=== PATIENT | female | born 1960 | race Caucasian/White ===

== ENCOUNTER 2017-09-27 14:00 | Outpatient (RCR) | payer OTHER, SELFPAY | END 2017-09-27 23:59 | LOC: PT.CARL 14:00 | PROVIDERS: Referring Provider Orthopaedic Surgery Adult Reconstructive Orthopaedic Surgery; Visit Provider Orthopaedic Surgery Adult Reconstructive Orthopaedic Surgery | DX: M25.562 Pain in left knee (principal) | CPT/HCPCS: 97014; 97110; 97161; G0283 ==

== ENCOUNTER 2017-11-08 09:30 | Outpatient (RCR) | payer OTHER, SELFPAY | END 2017-11-08 17:00 | disposition home or self-care (01) | LOC: PT 09:30 | PROVIDERS: Visit Provider Orthopaedic Surgery Adult Reconstructive Orthopaedic Surgery | DX: M25.562 Pain in left knee (principal) | CPT/HCPCS: 97010; 97014; 97033; 97035; 97110; G0283 ==

== ENCOUNTER → 2021-02-06 13:03 | Outpatient (CLI) | payer OTHER, SELFPAY ==
--- NOTE | 2021-02-06 13:05 | MM_ITS ---
PROCEDURE INFORMATION: Exam: MG Screening 3D Mammography Exam date and time: 02/06/2021 1:05 PM Age: 60 years old Clinical indication: screening mammogram . Family history of breast cancer TECHNIQUE: Imaging protocol: Screening tomosynthesis and 2D mammography including computer-aided detection (CAD) when performed. COMPARISON: MG MM MOBILE MAMMO DIGITAL SCREEN W CAD PAPO 08/27/2017 10:22 AM FINDINGS: MAMMOGRAPHY: Breast composition: There are scattered areas of fibroglandular density. Mass: Stable benign-appearing subcentimeter nodules are present in the bilateral breasts. No new or morphologically suspicious nodule has developed to suggest malignancy. Architectural distortion: No new or suspicious architectural distortion. Calcifications: No new or suspicious calcifications are present Asymmetric density: No new or suspicious asymmetric density is present Skin thickening: None. Axillary adenopathy: None. IMPRESSION: No mammographic evidence of malignancy. Recommend annual screening mammography unless otherwise clinically indicated. ASSESSMENT: BI-RADS category 2: Benign
== END ==
PROVIDERS: PCP Nurse Practitioner Family; Visit Provider Nurse Practitioner Family
DX: Z12.31 Encounter for screening mammogram for malignant neoplasm of breast (principal)
CPT/HCPCS: 77063; 77067

== ENCOUNTER → 2021-04-17 14:42 | Outpatient (CLI) | payer OTHER, SELFPAY | PROVIDERS: Visit Provider Internal Medicine Gastroenterology | DX: Z01.812 Encounter for preprocedural laboratory examination (principal); Z20.822 Contact with and (suspected) exposure to COVID-19; Z12.11 Encounter for screening for malignant neoplasm of colon | CPT/HCPCS: U0003 ==

== ENCOUNTER 2021-04-20 13:22 | Day surgery (SDC) | payer OTHER, SELFPAY ==
[2021-04-16 10:17] VITALS: BMI 31.6
[2021-04-20 13:34] VITALS: BP 135/68; PULSE 73; RESP 18; TEMP 37; O2SAT 96
--- NOTE | 2021-04-20 14:09 | HMH.ANESCL ---
[facility] Anesthesia Checklist - Patient Identification Patient Identification: Arm Band - Structural Data Admitted From: Home Planned Operative Procedure/s: colonoscopy Consent for Planned Operative Procedure(s) Verified: Yes Verified Documents: Surgical Consent, History and Physical - NPO Status Verified Time NPO: 00:00 - Additional verifications Anesthesia Reactions: No - Airway Assessment C-Spine Mobility Assessed: Yes (mp2) TMJ Mobility Assessed: Yes Dentition: Dentures-good fit - Neurological Assessment Level of Consciousness: Awake, Alert - Anesthesia Plan Anesthesia Risk discussed: Yes Anesthesia Plan: Verified ASA Class: II Anesthesia Type: MAC [facility] History I have reviewed the patient's past medical history: Yes Medical History: Reports:: Hyperlipidemia Denies:: Cancer, Diabetes Mellitus Type 1, Diabetes Mellitus Type 2, Internal Pacemaker, MRSA, Seizures *Have you ever received a pneumonia vaccine?: No *Have you received a flu vaccine this season?: No Anesthesia experience/problems:: nac Laterality Cases: Left: Arthroscopy Knee, Bilateral: Cataract Other Surgeries: No: Pacemaker Amputation: No Fractures: No - *Social History Last grade of school completed: GED Smoking Status: Current every day smoker Tobacco Type: cigarettes # Packs/Day (cigarettes): 1 Alcohol Intake: never Substance Use Type: denies use *Occupational Status:: employed, retired Housing: house Household Members: none *Travel in the last 8 weeks: None Family Hx:: No significant family history
--- NOTE | 2021-04-20 14:25 | P.PCN_ITS ---
[facility] Procedure Note Procedure Note:: Colonoscopy Procedure Report: Colonoscopy with cold snare polypectomy and Endo Clip placement Endoscopist: Tiago Toribio II, MD Referring physician: JUAN Hawkins Date of Procedure: April 20, 2021 Equipment: Olympus 190 variable stiffness pediatric colonoscope Sedation: MAC sedation Indication: Mrs. Ritter is a 60-year-old female who is here for diagnostic colonoscopy secondary to a positive Cologuard test. The patient reports no abdominal pain, weight loss, change in her bowel habits or rectal bleeding. She reports no hematochezia or melena. She reports no family history of colon cancer. She may have a bowel movement every couple of days. This is her first colonoscopy. Procedure: Prior to the procedure, a history and physical exam was performed, and patient's medications and allergies were reviewed. The risks, benefits and alternatives of the sedation and procedure were discussed with the patient. All questions were answered and informed consent was obtained. The patient was brought to the procedure room. Patient identification and proposed procedure were verified by the physician and the nurse. The patient was placed in a left lateral decubitus position and the scope was passed under direct vision. Throughout the procedure, the patient's blood pressure, pulse, and oxygen saturations were monitored continuously. The colonoscopy was accomplished without difficulty. The patient tolerated the procedure well. Findings: On digital rectal examination there was normal rectal tone. There were no external hemorrhoids. The colonoscope was introduced through the anal canal to the rectum and advanced to the cecum. The ileocecal valve and appendiceal orifice were identified. The scope was advanced a short distance into the ileum which appeared grossly normal. The scope was then withdrawn into the colon. There were a total of 6 colon polyps (cecum x1 (6 mm), transverse x2 (3 and 5 mm), descending x1 (4 mm), sigmoid x1 (6 mm) and rectum x1 (4 mm)) which were all removed via cold snare polypectomy. There was some heme after removal of the rectal polyp and an Endo Clip was placed over the polypectomy site with complete hemostasis. There were scattered diverticuli throughout the distal descending and sigmoid colon. Upon retroflexion within the rectum there were 1- 2 internal hemorrhoids.The preparation was good throughout with [place] Preparation Score of 8 out of 9. The cecal time was 14 minutes. Impression: 1. Colonic polyps x6 2. Left-sided diverticulosis 3. Grade 1-2 internal hemorrhoids Plan: I will follow up the polyp pathology and recommend repeat colonoscopy again in 3-5 years based upon the polyp histology. I would encourage a fiber bowel regimen on a long-term daily maintenance basis.
[2021-04-20 14:28] VITALS: BP 109/52; PULSE 65; RESP 16; TEMP 36.3; O2SAT 95
[2021-04-20 14:38] VITALS: BP 120/66; PULSE 65; RESP 18; TEMP 36.3; O2SAT 97
[2021-04-20 14:41] VITALS: O2SAT 94
[2021-04-20 14:48] VITALS: BP 128/65; PULSE 65; RESP 18; TEMP 36.3; O2SAT 98
[2021-04-20 14:58] VITALS: BP 128/65; PULSE 65; RESP 18; TEMP 36.3; O2SAT 98
== END 2021-04-20 14:59 | disposition home or self-care (01) ==
LOC: OUTP 13:23
PROVIDERS: PCP Nurse Practitioner Family; Visit Provider Internal Medicine Gastroenterology
PROC: 0DJD8ZZ Inspection of Lower Intestinal Tract, Via Natural or Artificial Opening Endoscopic (ICD-10-PCS; CPT 45378; principal; 2021-04-20 14:00)
DX: K63.5 Polyp of colon (principal); K57.30 Diverticulosis of large intestine without perforation or abscess without bleeding; K64.0 First degree hemorrhoids; E78.5 Hyperlipidemia, unspecified; Z72.0 Tobacco use; Z79.899 Other long term (current) drug therapy
CPT/HCPCS: 45385

== ENCOUNTER → 2022-07-01 10:03 | Outpatient (CLI) | payer OTHER, SELFPAY ==
--- NOTE | 2022-07-01 10:09 | MM_ITS ---
PROCEDURE INFORMATION: Exam: MG Bilateral Screening 3D Mammography Exam date and time: 07/01/2022 10:20 AM Age: 62 years old Clinical indication: Screening examination TECHNIQUE: Imaging protocol: Bilateral Screening tomosynthesis and 2D mammography including computer-aided detection (CAD) when performed. COMPARISON: 1. MG MM DIG SCREENING MAMM BI W/CAD 02/06/2021 1:21 PM 2. MG MM MOBILE MAMMO DIGITAL SCREEN W CAD PAPO 08/27/2017 10:22 AM FINDINGS: MAMMOGRAPHY: Breast composition: The breasts are almost entirely fatty. Mass: None. Architectural distortion: None. Calcifications: No suspicious calcifications. Asymmetric density: None. Skin thickening: None. Axillary adenopathy: None. IMPRESSION: No mammographic evidence of malignancy. Annual screening is recommended unless otherwise clinically indicated. ASSESSMENT: BI-RADS Category 1: Negative
== END ==
PROVIDERS: PCP Nurse Practitioner Family; Visit Provider Nurse Practitioner Family
DX: Z12.31 Encounter for screening mammogram for malignant neoplasm of breast (principal)
CPT/HCPCS: 77063; 77067

== ENCOUNTER 2024-03-27 15:17 | Outpatient (CLI) | payer MEDICARE, SELFPAY ==
--- NOTE | 2024-03-27 15:23 | CT_ITS ---
FINAL REPORT CLINICAL HISTORY: SCREENING current smoker 1 ppd x 45 yrs FINDINGS: Axial images were obtained from the lung apex to the mid abdomen by computed tomography. Low-dose protocol was utilized. CTDl vol(mGy): 2.90 DLP (mGy-cm): 108.90 FINDINGS: There is no axillary adenopathy. There is no hilar or mediastinal adenopathy. Mild coronary artery calcifications are noted. The heart size is normal. There is no pericardial or pleural effusion. Limited images of the upper abdomen are unremarkable. Lung window images demonstrate a 4 mm posterior right upper lobe nodule seen on image 20. There is a calcified granuloma in the right lower lobe. A 2 mm nodule was seen in the right lower lobe on image 51. IMPRESSION: Lung RADS category 2. Recommend 12 month follow-up low-dose chest CT. Reviewed, Interpreted and Dictated by Dank Castillo III, MD Transcribed by Christel Martinez Authenticated and [facility]
--- NOTE | 2024-03-27 15:26 | MM_ITS ---
PROCEDURE INFORMATION: Exam: MG Bilateral Screening 3D Mammography Exam date and time: 03/27/2024 3:15 PM Age: 63 years old Clinical indication: Screening examination TECHNIQUE: Imaging protocol: Bilateral Screening tomosynthesis and 2D mammography including computer-aided detection (CAD) when performed. COMPARISON: 1. MG MM DIG SCREENING MAMM BI W/CAD 07/01/2022 10:20 AM 2. MG MM DIG SCREENING MAMM BI W/CAD 02/06/2021 1:21 PM FINDINGS: MAMMOGRAPHY: Breast composition: The breasts are almost entirely fatty. Mass: None. Architectural distortion: None. Calcifications: No suspicious calcifications. Asymmetric density: None. Skin thickening: None. Axillary adenopathy: None. IMPRESSION: No mammographic evidence of malignancy. Annual screening is recommended unless otherwise clinically indicated. ASSESSMENT: BI-RADS Category 1: Negative
== END 2024-03-27 23:59 | disposition home or self-care (01) ==
LOC: RAD 15:19
PROVIDERS: PCP Nurse Practitioner Family; Visit Provider Nurse Practitioner Family
DX: Z12.31 Encounter for screening mammogram for malignant neoplasm of breast; F17.210 Nicotine dependence, cigarettes, uncomplicated; Z12.2 Encounter for screening for malignant neoplasm of respiratory organs
CPT/HCPCS: 71271; 77063; 77067

== ENCOUNTER 2024-11-28 10:02 | Day surgery (SDC) | payer MEDICARE, SELFPAY ==
[2024-11-27 10:19] VITALS: BMI 30.7
[2024-11-28 10:19] VITALS: BP 158/85; PULSE 61; RESP 18; TEMP 36.4; O2SAT 99
[2024-11-28] MEDS: LACTATED RINGERS 1000ML 1,000 ML 50 ML IV (10:35)
[2024-11-28 10:39] LABS: POC Glucose,Bedside 104 (70-110)
--- NOTE | 2024-11-28 10:44 | P.HP_ITS ---
History of Present Illness *Admission Date: 11/28/24 *Reason for visit:: Personal history of adenomatous colon polyps-surveillance *History of present illness: Mrs. Ritter is a 64-year-old female who is here for follow-up surveillance colonoscopy secondary to a personal history of adenomatous colon polyps. The patient did have a colonoscopy in March 2021 and had 6 polyps. The examination is deemed medically necessary for surveillance colonoscopy. The patient has been seen, interviewed and examined prior to the procedure by both myself and the anesthesia provider. [facility] Disclaimer: The information contained in this section may have been updated after the patient was seen, as this information can be updated by other users. Medical History (Updated 11/28/24 @ 10:45 by Tiago Toribio II, MD) Diabetes Hyperlipemia Hypertension History of high cholesterol Annual physical exam Surgical History (Updated 11/28/24 @ 10:32 by Carmen Mccabe RN) History of left knee surgery Tubal ligation status Family History Other Heart attack Stroke Social History Smoking Status: Current every day smoker tobacco type: cigarettes packs per day: 1 second hand exposure: Yes alcohol intake: never substance use type: denies use current occupational status: employed and retired Travel in the last 8 weeks: None household members: none housing: house 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 current occupational exposures/hazards: No caffeine: Yes Have you lived/traveled outside US in past 30 days?: No Contact w/someone who lives/traveled outside US past 30 days?: No Exposure to someone with infectious disease in past 14 days?: No Do you have a fever (greater than 100.4 F or 38 C)?: No Have you tested positive for COVID-19: No Exposed to someone with COVID-19 in past 14 days?: No Do you have a sore throat?: No Do you have a cough?: No Do you have any weakness?: No Are you experiencing any nausea/vomitting?: No Do you have any diarrhea?: No Are you experiencing any unusual bleeding?: No Do you have any muscle aches/pain?: No Do you have any abdominal pain?: No Are you experiencing loss of taste or smell?: No Other Medical History Have you received the Flu Vaccine for this season: No Have you received the Pneumonia Vaccine: No Review of Systems Review of Systems Review of systems (narrative): Negative *Cardiovascular Comments: Negative *Gastrointestinal Comments: Negative *Genitourinary Comments: Negative *Musculoskeletal Comments: Negative *Neurologic Comments: Negative Meds Home Medications and Allergies Home Medications ?Medication ?Instructions ?Recorded ?Confirmed ?Type rosuvastatin 20 mg tablet 20 mg PO DAILY Cholesterol 04/20/21 07/01/22 History peg 3350-electrolytes 236 240 ml PO Q10M colonscopy #4,000 mL 11/21/24 Rx gram-22.74 gram-6.74 gram-5.86 gram solution (Golytely) lisinopril 10 mg tablet 10 mg PO DAILY 11/27/24 11/28/24 History metformin 500 mg tablet 500 mg PO DAILY 11/27/24 11/28/24 History rosuvastatin 20 mg tablet 20 mg PO DAILY 11/27/24 11/28/24 History New Prescriptions to Start Prescriptions: Allergies Allergy/AdvReac Type Severity Reaction Status Date / Time No Known Allergies Allergy Verified 11/28/24 10:23 Exam Data for Last 24 hours Vital signs and Labs for Last 24 Hours: Temp Pulse Resp BP Pulse Ox O2 Del Method 97.6 F 61 18 158/85 H 99 Room Air 11/28/24 10:19 11/28/24 10:19 11/28/24 10:19 11/28/24 10:19 11/28/24 10:19 11/28/24 10:19 Laboratory Results - last 24 hr 11/28/24 10:30: POC Glucose 104 I & O for Last 24 hours: Intake & Output 11/25/24 11/26/24 11/27/24 11/28/24 23:59 23:59 23:59 23:59 Weight 185 lb *Routine HEENT Exam Head: Present normocephalic Eye: Present EOMI and PERRL ENT: Present mucous membranes moist *Routine Neck Exam Neck: Present supple *Routine Respiratory Exam Respiratory: Present CTA bilaterally *Routine Cardiovascular Exam Cardiovascular: Present RRR *Routine Abdominal Exam Abdominal: Present soft and normoactive bowel sounds; Absent tenderness *Routine Rectal Exam Rectal:: deferred *Routine Genitalia Exam Genitalia:: deferred *Routine Extremities Exam Extremities: Absent cyanosis, clubbing or edema *Routine Skin Exam Skin: Present warm; Absent rash *Routine Neurological Exam Neurological: Present alert and oriented X3 Assessment and Plan *Assessment and plan (1) Personal history of adenomatous and serrated colon polyps: Status: Acute Category: Medical Code(s): Z86.0101 - Personal history of adenomatous and serrated colon polyps Plan A/P: 1. Personal history of adenomatous colon polyps is the preprocedural diagnosis. The patient will be anesthetized/sedated using MAC sedation. The patient has been seen and examined. Cardiac and lung assessment prior to the examination is stable. Proceed with planned surveillance colonoscopy
--- NOTE | 2024-11-28 10:45 | P.PCN_ITS ---
[facility] Procedure Note Date: 11/28/24 Time: 11:15 Procedure Note:: Colonoscopy Procedure Report: Colonoscopy with cold snare polypectomy Endoscopist: Tiago Toribio II, MD Referring physician: JUAN Hawkins Date of Procedure: November 28, 2024 Equipment: Olympus 190 variable stiffness pediatric colonoscope Sedation: MAC sedation Indication: Mrs. Ritter is a 64-year-old female who is here for follow-up surveillance colonoscopy. She did have a positive Cologuard in 2020 and her colonoscopy in March 2021 revealed 6 polyps (sessile serrated adenoma x 1/tubular adenomas x 3/hyperplastic polyps x 2) which were removed. The patient reports no abdominal pain, weight loss, change in her bowel habits or rectal bleeding. She reports no family history of colon cancer. Procedure: Prior to the procedure, a history and physical exam was performed, and patient's medications and allergies were reviewed. The risks, benefits and alternatives of the sedation and procedure were discussed with the patient. All questions were answered and informed consent was obtained. The patient was brought to the procedure room. Patient identification and proposed procedure were verified by the physician and the nurse. The patient was placed in a left lateral decubitus position and the scope was passed under direct vision. Throughout the procedure, the patient's blood pressure, pulse, and oxygen saturations were monitored continuously. The colonoscopy was accomplished without difficulty. T he patient tolerated the procedure well. Findings: On digital rectal examination there was normal rectal tone. There were no external hemorrhoids. The colonoscope was introduced through the anal canal to the rectum and advanced to the cecum. The ileocecal valve and appendiceal orifice were identified. The scope was advanced a short distance into the ileum which appeared grossly normal. The scope was then withdrawn into the colon. The cecum, ascending and transverse colon and mucosa were grossly normal. There were scattered diverticuli throughout the descending and sigmoid colon (LEFT colon). There were 7 colon polyps (descending x 3 (3, 3 and 4 mm) and rectosigmoid x 4 (4, 5, 5 and 8 mm)). These were all removed via cold snare polypectomy. The rectum itself was normal. Upon retroflexion within the rectum there were grade 1-2 internal hemorrhoids. The preparation was excellent throughout with [place] Preparation Score of 9. The cecal time was 12 minutes. Impression: 1. Diminutive colonic polyps x 7 2. Left-sided diverticulosis 3. Grade 1-2 internal hemorrhoids Plan: I will follow-up the polyp histology and recommend repeat surveillance colonoscopy again in 3 to 5 years based upon the pathology. I would encourage psyllium fiber supplementation on a long-term daily maintenance basis.
[2024-11-28 11:19] VITALS: BP 120/72; PULSE 69; RESP 16; TEMP 36.3; O2SAT 92
[2024-11-28 11:29] VITALS: BP 108/68; PULSE 70; RESP 16; O2SAT 92
[2024-11-28 11:39] VITALS: BP 117/64; PULSE 71; RESP 18; O2SAT 94
[2024-11-28 11:49] VITALS: BP 103/56; PULSE 67; RESP 18; O2SAT 91
--- NOTE | 2024-11-28 16:11 | EXP.ANES.CKL ---
[facility] Disclaimer: The information contained in this section may have been updated after the patient was seen, as this information can be updated by other users. Medical History (Updated 11/28/24 @ 10:45 by Tiago Toribio II, MD) Diabetes Hyperlipemia Hypertension History of high cholesterol Annual physical exam Surgical History (Updated 11/28/24 @ 10:32 by Carmen Mccabe, DENA) History of left knee surgery Tubal ligation status Family History Other Heart attack Stroke Social History Smoking Status: Current every day smoker tobacco type: cigarettes packs per day: 1 second hand exposure: Yes alcohol intake: never substance use type: denies use current occupational status: employed and retired Travel in the last 8 weeks: None household members: none housing: house 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 current occupational exposures/hazards: No caffeine: Yes Have you lived/traveled outside US in past 30 days?: No Contact w/someone who lives/traveled outside US past 30 days?: No Exposure to someone with infectious disease in past 14 days?: No Do you have a fever (greater than 100.4 F or 38 C)?: No Have you tested positive for COVID-19: No Exposed to someone with COVID-19 in past 14 days?: No Do you have a sore throat?: No Do you have a cough?: No Do you have any weakness?: No Are you experiencing any nausea/vomitting?: No Do you have any diarrhea?: No Are you experiencing any unusual bleeding?: No Do you have any muscle aches/pain?: No Do you have any abdominal pain?: No Are you experiencing loss of taste or smell?: No [facility] Anesthesia Checklist Patient Identification Patient Identification: Arm Band Structural Data Admitted From: Home Planned Operative Procedure/s: Colonoscopy Consent for Planned Operative Procedure(s) Verified: Yes Verified Documents: Surgical Consent and History and Physical NPO Status Verified Time NPO: 00:00 Additional verifications Anesthesia Reactions: No Airway Assessment Mallampati Score:: Class II C-Spine Mobility Assessed: Yes TMJ Mobility Assessed: Yes Neurological Assessment Level of Consciousness: Awake, Alert and Appropriate Anesthesia Plan Anesthesia Risk discussed: Yes Anesthesia Plan: Verified ASA Class: II Anesthesia Type: MAC
== END 2024-11-28 11:54 | disposition home or self-care (01) ==
PROVIDERS: PCP Nurse Practitioner Family; Visit Provider Internal Medicine Gastroenterology
PROC: 0DJD8ZZ Inspection of Lower Intestinal Tract, Via Natural or Artificial Opening Endoscopic (ICD-10-PCS; CPT 45378; principal; 2024-11-28 11:30)
DX: K63.5 Polyp of colon (principal); K57.30 Diverticulosis of large intestine without perforation or abscess without bleeding; K64.8 Other hemorrhoids; Z86.0101 Personal history of adenomatous and serrated colon polyps; R19.5 Other fecal abnormalities; E11.9 Type 2 diabetes mellitus without complications; Z79.84 Long term (current) use of oral hypoglycemic drugs
CPT/HCPCS: 45385; 82962; J7120

== ENCOUNTER 2025-03-28 08:46 | Outpatient (CLI) | payer MEDICARE, SELFPAY ==
--- NOTE | 2025-03-28 08:49 | XR_ITS ---
FINAL REPORT CLINICAL HISTORY: SCREENING COMPARISON: None FINDINGS: Using L1-4, the bone mineral density of the spine is 1.086 g/cm2, corresponding to T-score of 0.4, within normal limits. Using the left hip, the bone mineral density of the total hip is 0.805 g/cm2, corresponding to a T-score of -1.1, consistent with osteopenia. Using the right hip, the bone mineral density of the femoral neck is 0.768 g/cm2, corresponding to a T-score of -0.7, within normal limits. FRAX 10 year fracture risk is 0.9% for a hip fracture and 7.7% for a major osteoporotic fracture. NOTE: T-score: Standard deviation compared with peak bone mass of young adult mean. *Following the recommendations of the International Society of Bone densitometry, classification of hip BMD is based on the lower of two T-scores; total hip or femoral neck. IMPRESSION: Normal bone mineral density of the lumbar spine and right hip, with diminished bone mineral density in the left hip consistent with osteopenia. Reviewed, Interpreted and Dictated by Zacarias Renee MD Transcribed by Monica Doan Authenticated and [facility]
--- NOTE | 2025-03-28 08:49 | CT_ITS ---
FINAL REPORT TECHNIQUE: Thin section axial images were obtained from the lung apices to the upper abdomen by computed tomography. Reformatted images were obtained and reviewed. This study was performed with techniques to keep radiation doses al low as reasonably achievable (ALARA). Individualized dose reduction techniques using automated exposure control or adjustment of mA and/or kV according to the patient's size were employed. CLINICAL HISTORY: SCREENING current smoker 1.5 packs per day for 40 years COMPARISON: 03/27/2024 FINDINGS: CHEST CT LOW DOSE 64-year-old female, current smoker, 56-[id number]-kqth history. CTDI vol (mGy): 2.90 DLP (mGy-cm): 96.38 There is no axillary adenopathy. There is no mediastinal or hilar mass or adenopathy. The heart is normal in size. There are mild coronary artery calcifications present. There is no pericardial or pleural effusion. Lung window images demonstrate a 4 mm posterior right upper lobe nodule, best seen on image #2 of series 4, stable. There is also a 2 mm right lower lobe nodule, best seen on image #53 of series 4, also stable. Limited images of the upper abdomen are unremarkable. IMPRESSION: Lung-RADS category 2. Recommend 12 month follow up low dose chest CT. Reviewed, Interpreted and Dictated by Zacarias Renee MD Transcribed by Guera Lenz Authenticated and . [facility]
--- NOTE | 2025-03-28 08:56 | MM_ITS ---
PROCEDURE INFORMATION: Exam: MG Bilateral Screening 3D Mammography Exam date and time: 03/28/2025 9:48 AM Age: 64 years old Clinical indication: Screening examination TECHNIQUE: Imaging protocol: Bilateral Screening tomosynthesis and 2D mammography including computer-aided detection (CAD) when performed. COMPARISON: 1. MG MM DIG SCREENING MAMM BI W/CAD 03/27/2024 3:15 PM 2. MG MM DIG SCREENING MAMM BI W/CAD 07/01/2022 10:20 AM FINDINGS: MAMMOGRAPHY: Breast composition: There are scattered areas of fibroglandular density. Mass: No suspicious masses. Architectural distortion: None. Calcifications: No suspicious calcifications. Asymmetric density: None. Skin thickening: None. Axillary adenopathy: None. IMPRESSION: No mammographic evidence of malignancy. Annual screening is recommended unless otherwise clinically indicated. ASSESSMENT: BI-RADS Category 1: Negative.
--- OUTSIDE RECORDS SUMMARY | 2025-03-28 09:05 | XMS_ITS | Continuity of Care Document ---
Author Organization [place] - [facility] Address [address] [place] [id number] Assessment Encounter Date Assessment Date Assessment LastModified by Organization Details LastModified Time 02/13/2025 02/13/2025 Declines vaccinations today. Not available 02/13/2025 11:53:28 Plan of Treatment Reminders Order Date Submit Date Provider Last Modified By Organization Details Last Modified Time Details Appointments None recorded. Lab HbA1c (hemoglobin A1c), blood 2024 025 [email or web address] [facility], [facility] [place], [address], 5 11:47:19 CMP, serum or plasma 2024 025 BETSY [facility]), [facility] [place], [address], 5 19:07:42 lipid panel, serum 2024 025 BETSY [facility] ([place] [address] [place], [address], 5 19:07:42 albumin/cre atinine, mass ratio, urine 2024 025 COOLSPRING [facility] ([place]), [address] [place], [address], 5 19:07:42 CBC w/ auto diff 2024 COOLS[facility] [facility] ([place]), [address], [place], [address], 19:07:41 Referral None recorded. Procedures None recorded. Surgeries None recorded. Imaging MAMMO, screening, digital, bilateral - due after 03/27/252024 [address] (Scheduling), [address], [place], [address], 09:42:28 LDCT, chest, for lung cancer screening - Secondary dx: F17.210; due after 03/27/25[address] (Scheduling), [address], [place], [address], 09:41:59 DEXA - same day as mammo please [address] (Scheduling), [address], [place], [address], 5 09:42:55 Medication Orders rosuvastati n 20 mg tablet 2024 [facility], [address] [place] [address], [address], 12:38:34 Jardiance 10 mg tablet 2024 [facility], [address] [place] [address], [address], 11:11:08 lisinopril 10 mg tablet 2024 [facility], [address] [place] [address], [address], 12:38:35 Patient TargetsNo targets recorded. Patient Instructions Encounter Date Encounter Id Patient Instructions Last Modified By Organization Details Last Modified Time 02/13/2025 [id number] Quitting Tobacco : Care Instructions Not available 02/13/2025 11:47:17 Reason for Referral None Reported. Results Created Date Observation Date Name Description Value Unit Range Abnormal Flag Note LastModifiedBy Organization Detail LastModifiedTime 02/14/2002/13/2025 HbA1c (hemo globi n A1c), blood HbA1c 6.6 Not Available [address], [address], 02/11/2025 17:14:30 Result Notes None recorded. Problems Name Problem SNOMED Code Status Onset Date Resolution Date Notes Provider Name and Address Organization Details Recorded Time Type 2 diabetes mellitus without complica tion 262740036 Active 2023 Alea Butler APRN [address] [place], [address] , [email or web address] 4 13:37:34 [facility] hyperten christiano 37490750 Active 2023 Alea Butler, GAYE [address] [place], [address] , [employer] 4 13:37:41 Type 2 diabetes mellitus 93952975 Active 2024 Alea Butler APRN [address] [place], [address] , [email or web address] 5 11:36:29 Body mass index 25-29 - overweig ht 152578262 Active 2024 Alea Butler, GAYE [address] [place], [address] , [email or web address] 5 13:09:21 Mixed hyperlip idemia 505153945 Active 2020 Problem Code: E78.2; Problem Code Type: ICD-10; Not Available [employer] 2 21:28:18 Tobacco dependen ce caused by cigarett es 90991169965 649275 Active 2020 Problem Code: F17.210; Problem Code Type: ICD-10; Not Available [facility] 2 21:28:18 Acute laryngop haryngit is 03424995 Completed 201707/09/2018 Problem Code: J06.0; Problem Code Type: ICD-10; Not Available [facility] 2 21:28:19 Nicotine dependen ce 69498573 Completed 201707/09/2018 Problem Code: F17.200; Problem Code Type: ICD-10; Not Available [facility] 2 21:28:19 Acute bronchit is 28457648 Completed 202008/31/2022 Problem Code: J20.9; Problem Code Type: ICD-10; MARCELLE kent, [employer] 2 08:10:00 Pain in left knee Completed 201606/28/2017 Problem Code: M25.562; Problem Code Type: ICD-10; Not Available [facility] 2 21:28:19 Pain in left knee Completed 201708/15/2018 Problem Code: M25.562; Problem Code Type: ICD-10; Not Available [facility] 2 21:28:19 Pain in left knee Completed 201611/09/2016 Problem Code: M25.562; Problem Code Type: ICD-10; Not Available [facility] 2 21:28:19 Rupture of synovium of hip 142798636 Completed 201609/23/2017 Problem Code: M66.152; Problem Code Type: ICD-10; Not Available [facility] 2 21:28:19 Subacrom ial bursitis 60455485 Completed 202008/31/2022 MARCELLE kent, [employer] 2 08:10:00 Elevated blood-pr essure reading without diagnosi s of hyperten christiano 127788162 Completed 202008/31/2022 MARCELLE kent, [employer] 2 08:10:00 Stool color abnormal 584421777 Completed 202008/31/2022 Problem Code: R19.5; Problem Code Type: ICD-10; MARCELLE ROBERTSONR null, [employer] 2 08:10:00 Finding of general energy 843915809 Completed 202002/16/2021 Problem Code: R53.83; Problem Code Type: ICD-10; Not Available [facility] 2 21:28:20 Tear of meniscus of knee 375879797 Completed 201609/23/2017 Problem Code: S83.201A ; Problem Code Type: ICD-10; Not Available [facility] 2 21:28:20 Abnormal finding on evaluati on procedur e 222380969 Completed 202008/31/2022 MARCELLE MOORENEAR null, [employer] 2 08:10:00 Screenin g mammogra phy Completed 202008/31/2022 Problem Code: Z12.31; Problem Code Type: ICD-10; MARCELLE MOORENEAR null, [employer] 2 08:10:00 Choleste rol screenin g Completed 202008/31/2022 MARCELLE MYNEAR null, [employer] 2 08:10:00 Screenin g for malignan t neoplasm of respirat ory tract Completed 202108/31/2022 Problem Code: Z12.2; Problem Code Type: ICD-10; MARCELLE MYNEAR null, [employer] 2 08:10:00 Screenin g for malignan t neoplasm of respirat ory tract Completed 201707/09/2018 Problem Code: Z12.2; Problem Code Type: ICD-10; MARCELLE TERESANEAR null, [employer] 2 08:10:00 Body mass index 30+ - obesity 827230593 Completed 201701/26/2021 Problem Code: Z68.31; Problem Code Type: ICD-10; Alea Butler, [employer]ICAL [employer] PROCESSOR [address] [facility], [place], [address] , [employer] 5 13:09:10 Pain in right knee Completed 201708/15/2018 Problem Code: M25.561; Problem Code Type: ICD-10; Not Available [facility] 2 21:28:21 Low back pain 942986308 Completed 202008/31/2022 Problem Code: M54.5; Problem Code Type: ICD-10; MARCELLE TERESAMOHAMUD kent, [employer] 08:10:00 Knee pain Completed 201708/15/2018 Problem Code: 719.46; Problem Code Type: ICD-9; Not Available [facility] 2 21:28:22 Knee pain Completed 201611/09/2016 Problem Code: 719.46; Problem Code Type: ICD-9; Not Available [facility] 2 21:28:22 Screenin g for malignan t neoplasm of colon Completed 202008/31/2022 MARCELLE TERESAMOHAMUD kent, [employer] 2 08:10:00 Tobacco dependen ce syndrome 77769428 Completed 201707/09/2018 Problem Code: 305.1; Problem Code Type: ICD-9; Not Available [facility] 2 21:28:23 Knee pain Completed 201606/28/2017 Problem Code: 719.46; Problem Code Type: ICD-9; Not Available [facility] 2 21:28:23 Synovial cyst of poplitea l space Completed 201609/23/2017 Problem Code: 727.51; Problem Code Type: ICD-9; Not Available [facility] 2 21:28:23 Current knee cartilag e tear Completed 201609/23/2017 Problem Code: 836.2; Problem Code Type: ICD-9; Not Available [facility] 2 21:28:23 Problem Notes None recorded. Procedures Surgical History Date Name Laterality Status Provider Name and Address Organization Details Recorded Time Most Recent Mammogram completed [facility] 08/22/2024 10:36:43 ligation of fallopian tube completed [facility] 08/31/2022 08:14:40 Knee Surgery completed [facility] 08/31/2022 08:14:56 bilateral extraction of cataracts completed [employer] 08/31/2022 08:15:20 Imaging Results None recorded. Procedure Notes None recorded. Medical Equipment None Reported. Allergies No known drug allergies Medications Name Sig Start Date Stop Date Status Note LastModified by Organization Details LastModified Time methocarbam ol 500 mg tablet take 1 tab by oral route every 8 hours prn back pain 11/24 completed Not Available Not Available Not Available doxycycline hyclate 100 mg capsule 02/13 completed Not Available Not Available Not Available azithromyci n 250 mg tablet take 2 tablets (500 mg) by oral route once daily for 1 day then 1 tablet (250 mg) by oral route once daily for 4 days 05/12 completed Not Available Not Available Not Available benzonatate 200 mg capsule take 1 capsule (200 mg) by oral route 3 times per day 05/12 completed Not Available Not Available Not Available Medrol (Ladarius) 4 mg tablets in a dose pack take by oral route as directed per package instructi ons 05/26 completed Not Available Not Available Not Available aspirin 81 mg tablet,shelia yed release Take 1 tablet every day by oral route. active Not Available Not Available No t Available meloxicam 7.5 mg tablet Take 1 tablet(s) by mouth BID 12/25 completed Not Available Not Available Not Available prednisolon e acetate 1 % eye drops,suspe nsion 11/29 completed Not Available Not Available Not Available lisinopril 10 mg tablet TAKE ONE TABLET BY MOUTH EVERY DAY active Not Available Not Available No t Available nicotine 21 mg/24 hr daily transdermal patch apply 1 patch topically once daily, remove old patch before applying new active Not Available Not Available No t Available diclofenac sodium 75 mg tablet,shelia yed release Take 1 tablet(s) by mouth bid 01/26 completed Not Available Not Available Not Available metformin ER 500 mg tablet,exte nded release 24 hr TAKE ONE TABLET BY MOUTH EVERY DAY WITH meal active Not Available Not Available No t Available lisinopril 2.5 mg tablet Take 1 tablet every day by oral route. 03/01 completed Not Available Not Available Not Available cyclobenzap rine 5 mg tablet take 1 tablet (5 mg) by oral route q HS prn shoulder pain 05/12 completed Not Available Not Available Not Available rosuvastati n 20 mg tablet TAKE ONE TABLET BY MOUTH EVERY DAY active Not Available Not Available No t Available ProAir HFA 90 mcg/actuati on aerosol inhaler inhale 1 - 2 puffs (90 - 180 mcg) by inhalatio n route every 4 hours as needed 2020 active Not Available Not Available Not Avai lable GaviLyte-G 236 gram-22.74 gram-6.74 gram-5.86 gram oral solution After mixing prep as directed, drink half of the gallon by drinking 8 ounces, or 1 cup, every 15 minutes until half is remaining . refrigera te the remaining and continue clear liquids till midnight. 5-6 hours before exam, take the second dosage, 8oz every 15 minutes till gone. 02/13 completed Not Available Not Available Not Available Jardiance 10 mg tablet TAKE ONE TABLET BY MOUTH EVERY MORNING FOR FOR DIABETES 03/05 completed Not Available Not Available Not Available Vitals Date Recorded Body height Body mass index (BMI) Body weight Body temperature Heart rate Oxygen saturation Oxygen saturation in Arterial blood by Pulse oximetry Systolic And Diastolic Provider Name and Address Organization Details Last Updated DateTime 5 165.1 cm 28.7 kg/m2 23644.3 2 g 97.4 [degF] 74 /min 95 % 95 % 115/50 mm[Hg] MARCELLE JO [facility] [employer] 5 11:29:21 Social History Question Answer Notes LastModified by Organizat ion Details LastModified Time Tobacco Smoking Status Current Every Day Smoker Patrica kent, [facility] [employer] 11/25/2022 10:25:05 Do You Have An Advance Directive? No Information n ot available 08/31/2022 Is Your Home Air Conditioned? Yes Information not available 08/31/2022 Are You Blind Or Do You Have Difficulty Seeing? No Information n ot available 08/31/2022 In The 14 Days Before Symptom Onset, Have You Had Close Contact With A Laboratory-confirm ed COVID-19 While That Case Was Ill? No Information n ot available 08/31/2022 In The 14 Days Before Symptom Onset, Have You Had Close Contact With A Person Who Is Under Investigation For COVID-19 While That Person Was Ill? No Information not available 08/31/2022 Have You Been To An Area Known To Be High Risk For COVID-19? No Information not available 08/31/2022 Are You Deaf Or Do You Have Serious Difficulty Hearing? No Information not available 08/31/2022 What Type Of Diet Are You Following? 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 No Information no t available 08/31/2022 Are There Any Guns Present In Your Home? No Information not available 08/31/2022 Do You Have A Medical Power Of Car Shifter? No Information not available 08/31/2022 What Was The Date Of Your Most Recent Tobacco Screening? 02/13/2025 Information not available 02/13/2025 What Is Your Current Pack Years? 30ormorepacky ears Information not available 08/31/2022 What Is Your Relationship Status? Information not available 08/31/2022 Do You Use Your Seat Belt Or Car Seat Routinely? Yes Information not available 08/31/2022 Do You Have Smoke And Carbon Monoxide Detectors In Your Home? Yes Information not available 08/31/2022 At What Age Did You Start Smoking Tobacco? 17 Information not available 08/31/2022 Are You Passively Exposed To Smoke? No Information no t available 08/31/2022 Are There Any Smokers In Your House? No Information not available 08/31/2022 How Much Tobacco Do You Smoke? 1 PPW Information not available 08/31/2022 Do You Use Sunscreen Routinely? No Information not available 08/31/2022 Has Tobacco Cessation Counseling Been Provided? No Information not available 08/31/2022 How Many Years Have You Smoked Tobacco? 45 Information not available 08/31/2022 Have You Recently Traveled Abroad? No Information not available 08/31/2022 Do You Have Difficulty Walking Or Climbing Stairs? No Information not available 08/31/2022 Are You Currently In School? No Information not available 08/31/2022 Do You Have Any Dietary Restrictions? No Information not available 08/31/2022 Sex: Female Functional Status Question Answer Note LastModified by [employer] ion Details LastModified Time Do you use any illicit or recreational drugs? No Information not available 08/31/2022 Do you or have you ever used any other forms of tobacco or nicotine? No Information not available 08/31/2022 What is your level of alcohol consumption? None Information not available 08/31/2022 Are you currently employed? Yes Information not available 08/31/2022 Do you have transportation difficulties? No Information not available 08/31/2022 Do you have difficulty doing errands alone? No Information not available 08/31/2022 Are you able to care for yourself? Yes Information not available 08/31/2022 Do you have difficulty dressing or bathing? No Information not available 08/31/2022 Mental Status Question Answer Note LastModified by Organization D etails LastModified Time Do you have difficulty concentrating, remembering or making decisions? No Information no t available 08/31/2022 Family History Relationship Description Onset Age of this Age Resolved Age Notes LastModified by Organization Details LastModified Time Unspecified Relation Family history of transient ischemic attack [email or web address] Not available 2022 10:24:46 Unspecified Relation Family history of breast cancer [email or web address] Not available 2022 10:24:48 Unspecified Relation Family history of sudden cardiac [email or web address] Not available 2022 10:24:51 Medical History Condition Response Diabetes Y Hypertension Y High Cholesterol Y Gynecological History Statement/Question Response Date of Last Pap Smear Most Recent Mammogram 04/16/2024 Obstetrics History GPAL:G 0 P 0 0 0 0 Immunizations Vaccine Type Date Status Note Provider Nam e and Address Organization Details Recorded Time COVID-19, mRNA, LNP-S, PF, 100 mcg/0.5mL dose or 50 mcg/0.25mL dose 03/26/2021 completed MARCELLEAGUEDA kent, [facility] [employer] 08/31/2022 08:08:13 COVID-19, mRNA, LNP-S, PF, 100 mcg/0.5mL dose or 50 mcg/0.25mL dose 02/27/2021 completed MARCELLE [employer], [facility] 08/31/2022 08:08:13 Past Encounters Encounter ID Performer Location Encounter Start Date Encounter Closed Date Diagnosis/Indication Diagnosis SNOMED-CT Code Diagnosis ICD10 Code Diagnosis Note [id number] Alea Butler [address] [address] 02/13/2025 11:23:47 02/13/2025 12:40:05 Type 2 diabetes mellitus 75274814 E11.9 Stop metformin, start Jardiance due to multiple CVD risk factors. DM diet and exercise encouraged . Essential hypertension 95469193 I10 Continue DANA inhibitor. Mixed hyperlipidemia 267 916832 E78.2 Continue statin. Screening mammography 24 175876 Z12.31 Screening for malignant neoplasm of respiratory tract 937528482 Z12.2 Screening for osteoporosis 610997631 Z13.820 Z78.0 Tobacco de pendence caused by cigarettes 2509215207 8918679 F17.210 Smoking cessation counseling provided. Body mass index 25-29 - overweight 053502323 E66.3 Health Concerns Section Related Observation LastModified by Organization Detai ls LastModified Time None Recorded Concern Status LastModified by Organization Details LastModified Time None Recorded Payers Encounter Date Sequence Insurance Name Policy Number Policy Ocampo Covered Member ID Ocampo Member ID Guarantor Name 02/13/2025 SLIDING FEE SCHEDULE - DISCOUNT Vilma Ritter Notes Date Note Type Note Provider Name and Address Organization Details Recorded Time 02/14/20 25 text/htm l Diabetes F/UReported bypatient.Review finger sticks:never checks her glucose Labs:last A1C result: 6.3 Context:seeing eye doctor regularly; checking feet regularly; taking aspirin daily; not missing doses of medications; no side effects from medications Associated Symptoms:no weight gain; no dizziness; no sweats; no headaches; no confusion; no increased thirst; no increased appetite; no increased urination; no blurred vision; no numbness of feet; no calluses on feet;weight loss (7 lbs)HyperlipidemiaReported bypatient.Duration:chronic Control:improving Adherence to Treatment Plan:exercises; takes medications as prescribed;does not follow recommended diet Complications:no coronary artery disease; no peripheral artery disease; no cardiovascular disease Risk Factors:diabetes;smoking;obes ity;low HDL level;high lipoprotein(a) level;consumption of saturated fats and trans-fatty acidsHypertensionReported bypatient.Quality:asymptomati c Onset/Timing:gradual onset Self Care:not under emotional stress; using an DANA inhibitor Associated Symptoms:no shortness of breath; no fatigue; no palpitations; no decrease in exercise tolerance; no snoring Alea Butler APRN [address] [place], [address], [facility] [employer] 02/13/2025 13:10:04 OBGyn Episode No OBEpisode recorded.
== END 2025-03-28 23:59 | disposition home or self-care (01) ==
LOC: RAD 08:47
PROVIDERS: PCP Nurse Practitioner Family; Visit Provider Nurse Practitioner Family
DX: Z12.31 Encounter for screening mammogram for malignant neoplasm of breast (principal); R92.323 Mammographic fibroglandular density, bilateral breasts; R91.8 Other nonspecific abnormal finding of lung field; Z12.2 Encounter for screening for malignant neoplasm of respiratory organs; M85.852 Other specified disorders of bone density and structure, left thigh; Z13.820 Encounter for screening for osteoporosis; Z78.0 Asymptomatic menopausal state; F17.210 Nicotine dependence, cigarettes, uncomplicated
CPT/HCPCS: 71271; 77063; 77067; 77080